=== PATIENT | male | born 1995 | race Caucasian/White ===

== ENCOUNTER 2018-12-23 04:26 | Emergency (ER) | payer OTHER ==
--- NOTE | 2018-12-23 05:20 | ED ---
Throat Pain/Nasal Congestion - HPI Summary HPI Summary: A 23 y/o male presents to [facility] with a chief complaint of dental pain today. He reports that he has broken teeth. He says that the tooth that is bothering him is in the top right of his mouth and is still in his gum. He rated his pain as an 8/10 in severity. - History of Current Complaint Chief Complaint: EDDentalPain Time Seen by Provider: 12/23/18 05:13 Hx Obtained From: Patient Onset/Duration: Sudden Onset, Lasting Hours, Still Present Severity: Severe Associated Signs And Symptoms: Positive: Negative - fever Cough: None - Allergies/Home Medications Allergies/Adverse Reactions: Allergies Allergy/AdvReac Type Severity Reaction Status Date / Time No Known Allergies Allergy Verified 12/23/18 04:31 PMH/Surg Hx/FS Hx/Imm Hx Sensory History: Denies: Hx Deafness Infectious Disease History: No Infectious Disease History: Denies: Traveled Outside the [place] in Last 30 Days - Family History Known Family History: Positive: Other - non contributory - Social History Alcohol Use: None Hx Substance Use: No Substance Use Type: Reports: None Hx Tobacco Use: No Smoking Status (MU): Former Smoker Review of Systems Negative: Fever Positive: Dental Pain All Other Systems Reviewed And Are Negative: Yes Physical Exam - Summary Physical Exam Summary: VITAL SIGNS: Reviewed. GENERAL: Patient is a well-developed and nourished MALE who is lying comfortable in the stretcher. Patient is not in any acute respiratory distress. HEAD AND FACE: No signs of trauma. No ecchymosis, hematomas or skull depressions. No sinus tenderness. EYES: PERRLA, EOMI x 2, No injected conjunctiva, no nystagmus. EARS: Hearing grossly intact. Ear canals and tympanic membranes are within normal limits. MOUTH: Poor dentition, tenderness over gum of right upper molar. NECK: Supple, trachea is midline, no adenopathy, no JVD, no carotid bruit, no c- spine tenderness, neck with full ROM. CHEST: Symmetric, no tenderness at palpation LUNGS: Clear to auscultation bilaterally. No wheezing or crackles. CVS: Regular rate and rhythm, S1 and S2 present, no murmurs or gallops appreciated. ABDOMEN: Soft, non-tender. No signs of distention. No rebound no guarding, and no masses palpated. Bowel sounds are normal. EXTREMITIES: FROM in all major joints, no edema, no cyanosis or clubbing. NEURO: Alert and oriented x 3. No acute neurological deficits. Speech is normal and follows commands. SKIN: Dry and warm Triage Information Reviewed: Yes Vital Signs On Initial Exam: Initial Vitals Temp Pulse Resp BP Pulse Ox 98.1 F 80 16 136/88 99 12/23/18 04:30 12/23/18 04:30 12/23/18 04:30 12/23/18 04:30 12/23/18 04:30 Vital Signs Reviewed: Yes Diagnostics - Vital Signs Vital Signs Temp Pulse Resp BP Pulse Ox 12/23/18 04:30 98.1 F 80 16 136/88 99 - Laboratory Lab Statement: Any lab studies that have been ordered have been reviewed, and results considered in the medical decision making process. EENT Course/Dx - Course Course Of Treatment: A 23 y/o male presents to [facility] with a chief complaint of dental pain today. He reports that he has broken teeth. He says that the tooth that is bothering him is in the top right of his mouth and is still in his gum. The physical exam revealed Poor dentition, tenderness over gum of right upper molar. The patient will be discharged with prescriptions for Clindamycin and Motrin and follow up with his dentist. The patient is agreeable with this plan. - Diagnoses Provider Diagnoses: Gingivitis Discharge - Sign-Out/Discharge Documenting (check all that apply): Patient Departure - DC Patient Received Moderate/Deep Sedation with Procedure: No - Discharge Plan Condition: Stable Disposition: HOME Prescriptions: Clindamycin Cap(NF) [Clindamycin Cap 300 mg Cap(NF)] 300 mg PO Q6H #30 cap Ibuprofen TAB* [Motrin TAB* 800 MG] 800 mg PO Q6H PRN #30 tab PRN Reason: Pain Patient Education Materials: Gingivitis (ED) Referrals: [facility] [Outside] (1-3 days) Additional Instructions: PLEASE RETURN TO THE ED IMMEDIATELY FOR WORSENING OR CONCERNING SYMPTOMS. - Attestation Statements Document Initiated by Scribe: Yes Documenting Scribe: Reji Ford Provider For Whom Scribe is Documenting (Include Credential): Irene Scales MD Scribe Attestation: Reji Baird, scribed for Irene Scales MD on 12/23/18 at 0531. Status of Scribe Document: Ready
[2018-12-23] MEDS: Ketorolac INJ* 30 MG/ML 1 ML VIAL IM ONE (05:32)
[2018-12-23] MEDS: Clindamycin CAP* 150 MG PO ONE (05:32)
[2018-12-23] MEDS: oxyCODONE/Acetamin 5/325 MG* TAB PO ONE (05:32)
[2018-12-23 05:42] VITALS: BP 0/0
== END 2018-12-23 05:39 | disposition home or self-care (01) ==
LOC: ED 04:26
DX: K05.10 Chronic gingivitis, plaque induced (principal); Z87.891 Personal history of nicotine dependence
CPT/HCPCS: 96372; 99282; A9270-GY; J1885

== ENCOUNTER 2019-06-02 09:05 | Emergency (ER) | payer SELFPAY ==
--- NOTE | 2019-06-02 09:39 | ED ---
Throat Pain/Nasal Congestion - HPI Summary HPI Summary: Patient is a 23-year-old male who presents emergency department for dental pain times several days. Patient notes he has an old prescription of penicillin he' s been taking last couple days without improvement. Hasn't taking Tylenol and Motrin without relief. Patient states he does not currently have a dentist. Denies fever, difficulty swallowing, vomiting. Symptoms are mild in severity. Touching affected area makes symptoms worse. Nothing makes symptoms better. - History of Current Complaint Chief Complaint: EDDentalPain Time Seen by Provider: 06/02/19 09:37 Hx Obtained From: Patient - Allergies/Home Medications Allergies/Adverse Reactions: Allergies Allergy/AdvReac Type Severity Reaction Status Date / Time No Known Allergies Allergy Verified 12/23/18 04:31 PMH/Surg Hx/FS Hx/Imm Hx Previously Healthy: Yes Sensory History: Denies: Hx Deafness Infectious Disease History: No Infectious Disease History: Denies: Traveled Outside the [place] in Last 30 Days - Family History Known Family History: Positive: Other - non contributory, Non-Contributory - Social History Occupation: Unemployed Lives: With Family Alcohol Use: None Hx Substance Use: No Substance Use Type: Reports: None Hx Tobacco Use: No Smoking Status (MU): Former Smoker Review of Systems Constitutional: Negative Negative: Fever, Chills Positive: Dental Pain Gastrointestinal: Negative Neurological: Negative All Other Systems Reviewed And Are Negative: Yes Physical Exam Triage Information Reviewed: Yes Vital Signs On Initial Exam: Initial Vitals Temp Pulse Resp BP Pulse Ox 97.7 F 104 20 146/98 100 06/02/19 09:07 06/02/19 09:07 06/02/19 09:07 06/02/19 09:07 06/02/19 09:07 Vital Signs Reviewed: Yes Appearance: Positive: Pain Distress - Pt. sitting on bed holding left side of face. Appears in pain but nontoxic. Friend present. Skin: Positive: Warm, Dry Head/Face: Positive: Normal Head/Face Inspection Eyes: Positive: Normal, EOMI Dental: Positive: Other - Poor dentition throughout. Pain on palpation to left lower bottom teeth. No drainable abscess. No, necrosis. No swelling under the tongue. No trismus or submandibular edema. Neck: Positive: Supple, Nontender, No Lymphadenopathy Neurological: Positive: Normal, CN Intact II-III Psychiatric: Positive: Affect/Mood Appropriate Diagnostics - Vital Signs Vital Signs Temp Pulse Resp BP Pulse Ox 06/02/19 09:07 97.7 F 104 20 146/98 100 - Laboratory Lab Statement: Any lab studies that have been ordered have been reviewed, and results considered in the medical decision making process. EENT Course/Dx - Course Course Of Treatment: Patient with numerous dental caries and decay. Afebrile well-appearing. Clinicallymasonandnaproxen.PatientisgivenadoseofToradolforpainintheER.Patientwas providedalistoflocaldentalclinic sforclosefollow- up.Returntheearsymptomschangeorworsen.Patientunderstandsandagreeswithplan. - Differential Diagnoses Differential Diagnoses: Dental Caries, Fractured Tooth, Gingivitis, Periodontic Abscess, Periodontic Disease - Diagnoses Provider Diagnoses: Dental decay Discharge ED - Sign-Out/Discharge Documenting (check all that apply): Patient Departure Patient Received Moderate/Deep Sedation with Procedure: No - Discharge Plan Condition: Good Disposition: HOME Prescriptions: Clindamycin Cap(NF) [Clindamycin Cap 300 mg Cap(NF)] 300 mg PO Q6H #40 cap Ibuprofen TAB* [Motrin TAB* 800 MG] 800 mg PO TID #20 tab Patient Education Materials: Mepivacaine (By injection), Toothache (ED) Referrals: [facility] [Outside] Additional Instructions: Please follow up with a dentist as soon as possible Take medication as directed Return to ER if symptoms change or worsen - Billing Disposition and Condition Condition: GOOD Disposition: Home
[2019-06-02] MEDS ORDERED: Ketorolac INJ* 30 MG/ML 1 ML VIAL IM ONE (09:57)
[2019-06-02 10:49] VITALS: BP 120/72
== END 2019-06-02 10:47 | disposition home or self-care (01) ==
LOC: ED 09:05
DX: K02.9 Dental caries, unspecified (principal); Z87.891 Personal history of nicotine dependence
CPT/HCPCS: 96372; 99281; J1885